=== PATIENT | male | born 2000 | race Hispanic/Latino ===

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

== ENCOUNTER 2021-08-19 18:22 | Emergency (ER) | payer OTHER, SELFPAY ==
[~2021-08-19 18:22] MED LIST: Iopamidol 370 76% 100 ML VIAL ONE
[2021-08-19 18:38] LABS: #Basophils 0.1 thou/uL (0.0-0.2); #Eosinphils 0.2 thou/uL (0.0-0.7); #Lymphocytes 3.9 thou/uL (1.20-3.40); #Monocytes 0.6 thou/uL (0.11-0.59); #Neutrophils 5.7 thou/uL (1.40-6.50); %Basophils 0.6 % (0.0-1.0); %Eosinophils 1.7 % (0.0-10.0); %Lymphocytes 37.3 % (28.0-48.0); %Monocytes 5.8 % (0.0-4.0); %Neutrophils 54.6 % (31.0-61.0); Hemoglobin 15.8 g/dL (14.0-18.0); Mean Corpuscular Volume 91.3 fL (78.0-98.0); Platelet Count 380 thou/uL (130-400); RBC Distribution Width 11.7 % (11.5-14.5); Red Blood Cell (RBC) Count 5.09 mill/uL (4.00-5.20); White Blood Cell (WBC) Count 10.4 thou/uL (4.8-10.8)
[2021-08-19 18:53] LABS: ALT (SGPT) 21 U/L (8-55); AST (SGOT) 20 U/L (10-45); Albumin 4.7 g/dL (3.5-5.0); Alkaline Phosphatase 79 U/L (50-130); Anion Gap 15 mmol/L (10-20); BUN (Urea Nitrogen) 18 mg/dL (8.4-21.0); Bilirubin, Total 0.5 mg/dL (0.2-1.2); Calc. Creatinine Clearance 0 mL/min (70-130); Calcium 10.3 mg/dL (7.8-10.44); Carbon Dioxide 23 mmol/L (22-29); Chloride 108 mmol/L (98-107); Glucose 110 mg/dL (70-105); Potassium 3.4 mmol/L (3.5-5.1); Protein, Total 7.7 g/dL (6.0-8.3); Sodium 143 mmol/L (136-145)
[2021-08-19] MEDS ORDERED: Lidocaine 1% w/Epinephrine 1:100K 20 ML VIAL ONE (19:09)
[2021-08-19] MEDS ORDERED: Bacitracin 1 PK ONE (19:09)
[2021-08-19] MEDS ORDERED: Ketorolac Tromethamine 30 MG/ML VIAL ONE (19:35)
== END 2021-08-19 19:46 | disposition home or self-care (01) ==
LOC: BURERS 18:22
DX: S01.81XA Laceration without foreign body of other part of head, initial encounter (principal); S06.9X9A Unspecified intracranial injury with loss of consciousness of unspecified duration, initial encounter; M62.838 Other muscle spasm; I49.9 Cardiac arrhythmia, unspecified; V03.99XA Pedestrian with other conveyance injured in collision with car, pick-up truck or van, unspecified whether traffic or nontraffic accident, initial encounter
CPT/HCPCS: 12011; 70450; 70486; 71260; 72125; 74177; 80053; 85025; 93005; 96372; J1885; Q9967

== ENCOUNTER 2021-08-20 15:30 | Emergency (ER) | payer OTHER ==
[~2021-08-20 15:30] MED LIST changes: +Bacitracin 1 PK ONE; -Iopamidol 370 76% 100 ML VIAL ONE; +Lidocaine 1% w/Epinephrine 1:100K 20 ML VIAL ONE
[2021-08-20] MEDS ORDERED: Cyclobenzaprine 10 MG TAB ONE (15:55)
[2021-08-20] MEDS ORDERED: Ketorolac Tromethamine 30 MG/ML VIAL ONE (15:55)
== END 2021-08-20 16:01 | disposition home or self-care (01) ==
LOC: BURERS 15:30
DX: S09.90XA Unspecified injury of head, initial encounter (principal); M62.838 Other muscle spasm; H53.8 Other visual disturbances; R68.84 Jaw pain; V03.99XA Pedestrian with other conveyance injured in collision with car, pick-up truck or van, unspecified whether traffic or nontraffic accident, initial encounter
CPT/HCPCS: 96372; 99283; J1885

== ENCOUNTER 2021-08-27 15:52 | Emergency (ER) | payer OTHER | END 2021-08-27 16:50 | disposition home or self-care (01) | LOC: BURERS 15:52 | DX: S01.81XD Laceration without foreign body of other part of head, subsequent encounter (principal); V03.99XD Pedestrian with other conveyance injured in collision with car, pick-up truck or van, unspecified whether traffic or nontraffic accident, subsequent encounter; Z79.899 Other long term (current) drug therapy ==